=== PATIENT | male | born 1985 | race Caucasian/White ===

== ENCOUNTER 2018-01-26 23:06 | Emergency (ER) | payer OTHER ==
[~2018-01-26] VITALS: Ht 182.9 cm; Wt 70.3 kg
[2018-01-26 23:17] VITALS: BP_SYST 130
[2018-01-26 23:21] VITALS: BP_SYST 130
== END 2018-01-26 23:13 ==
LOC: SED 23:06
DX: Z04.1 Encounter for examination and observation following transport accident (principal); V89.2XXA Person injured in unspecified motor-vehicle accident, traffic, initial encounter; Y93.89 Activity, other specified; Y92.410 Unspecified street and highway as the place of occurrence of the external cause; Y99.8 Other external cause status
CPT/HCPCS: 99283